=== PATIENT | female | born 1965 | race Caucasian/White ===

== ENCOUNTER 2023-12-06 06:30 | Day surgery (SDC) | payer BC, OTHER ==
[2023-12-06] VITALS (7 sets, daily range): BP systolic 111–160; BP diastolic 52–87; PULSE 53–113; RESP 12–18; O2SAT 92–96
[~2023-12-06] VITALS: Ht 172.7 cm; Wt 88.0 kg
[~2023-12-06 06:30] MED LIST: ALBU108A5 IN; AMOX250C3 PO; BACL10TA PO; CRAN500T6 PO; DICY20TA PO; DULO60CA41 PO; GABA-1250 PO; HYDR200T36 PO; LACTCAP35 PO; LEFL20TA PO; LEVO75CA3 PO; METH4TAB9 PO; PANT40TA57 PO; POM PO; TIZA4TAB9 PO; UMEC1AER IN
[2023-12-06] MEDS ORDERED: IODIXANOL 320MG/ML 100ML BTL IV ONE (08:07)
[2023-12-06] MEDS ORDERED: LIDOCAINE 2%HCL (LOCAL ANESTH.) INJ 20ML MDV ONE (08:07)
[2023-12-06] MEDS ORDERED: ANGIOMAX 250 MG VIAL IV ONE (08:22)
[2023-12-06] MEDS ORDERED: fentaNYL CITRATE 100 MCG/2 ML VL ONE (08:23)
[2023-12-06] MEDS ORDERED: MIDAZOLAM HCL 2MG/2ML 2ml VIAL (1mg/ml) ONE (08:23)
[2023-12-06] MEDS ORDERED: HEPARIN SODIUM (PORCINE) 5000 UNITS/ML 1ML VIAL ONE (08:23)
[2023-12-06] MEDS ORDERED: VERAPAMIL 2.5MG/ML INJ 2ML VIAL IV ONE (08:23)
[2023-12-06] MEDS ORDERED: SODIUM CHL 0.9% 0 ML ONE (08:24)
== END 2023-12-06 10:49 | disposition home or self-care (01) ==
LOC: CATH 06:30
PROVIDERS: ATTEND Internal Medicine
DX: R94.39 Abnormal result of other cardiovascular function study (principal); F17.210 Nicotine dependence, cigarettes, uncomplicated; Z79.899 Other long term (current) drug therapy; Z98.890 Other specified postprocedural states
CPT/HCPCS: 93458; C1894; J1644; J2250; J3010; J7030; Q9967; 99152